=== PATIENT | female | born 1960 | race Caucasian/White ===

== ENCOUNTER 2023-02-13 17:24 | Emergency (ER) | payer BC ==
[2023-02-13] MEDS ORDERED: BENZONATATE 100 MG CAPSULE PO STA (17:40)
[2023-02-13 17:42] VITALS: BP 140/82
--- NOTE | 2023-02-13 17:43 | ED Physician Documentation ---
PD HPI URI - Stated complaint Stated Complaint: DRY COUGH - Chief complaint Chief Complaint: Resp - History obtained from History obtained from: Patient - Additional information Additional information: Patient is a 62-year-old female presenting for evaluation of nonproductive cough that is been going on for 4 days. Patient was seen at the walk-in clinic on Tuesday and felt that her symptoms are likely related to a viral infection and continue with supportive care. She was not given any prescriptions for her symptoms. She states that she has also had a sore throat for similar amount of days. She did not have a strep test done. She states that overnight she had difficulty sleeping due to the cough keeping her up. Denies known fevers. Denies congestion. Denies chest pain or feeling short of air. She has taken 2 COVID test at home including this morning which have both been negative. Denies known sick contacts. Review of Systems Constitutional: denies: Fever Cardiac: denies: Chest pain / pressure Respiratory: reports: Cough. denies: Dyspnea GI: denies: Abdominal Pain, Vomiting : denies: Dysuria Neurologic: denies: Headache PD PAST MEDICAL HISTORY - Present Medications Home Medications: Ambulatory Orders Medication Instructions Recorded Confirmed Albuterol Sulf [Ventolin Hfa 1 - 2 puffs INH Q4HR PRN #1 each 02/13/23 Inhaler] Benzonatate [Tessalon] 200 mg PO QID PRN #20 cap 02/13/23 estradioL [Estradiol] 10 mg [place] ONCE 02/13/23 02/13/23 - Allergies Allergies/Adverse Reactions: Allergies Allergy/AdvReac Type Severity Reaction Status Date / Time codeine Allergy Emesis Verified 02/13/23 17:29 Sulfa (Sulfonamide Allergy Emesis Verified 02/13/23 17:29 Antibiotics) PD ED PE NORMAL - General General: Alert and oriented X 3, No acute distress, Well developed/nourished - HEENT HEENT: Atraumatic, Moist mucous membranes, Pharynx benign (No oral swelling or exudate) - Neck Neck: Supple, no meningeal sign - Cardiac Cardiac: RRR, Strong equal pulses - Respiratory Respiratory: No respiratory distress, Clear bilaterally - Abdomen Abdomen: Soft, Non tender - Derm Derm: Warm and dry - Extremities Extremities: No edema - Neuro Neuro: Normal speech Results - Vitals Vitals: Vital Signs - 24 hr 02/13/23 17:29 Temperature 36.8 C Heart Rate 90 Respiratory 16 Rate Blood Pressure 140/82 H O2 Saturation 99 - Labs Labs: Laboratory Tests 02/13/23 17:48 Group A Strep Rapid Negative PD Medical Decision Making - ED course Complexity details: reviewed results, re-evaluated patient, d/w patient ED course: Patient is a 62-year-old female presenting for evaluation of cough and a sore throat for the past several days. Has had home COVID test which have been negative. Her vital signs here are stable. No signs of labored breathing. No chest pain or shortness of air. No wheezing on exam. Chest x-ray which I reviewed is negative for pneumonia or effusion. Strep test is negative. Patient was given a dose of Decadron as well as a dose of Tessalon. Discussed that her symptoms are likely viral in nature but we could offer some treatments that may help with the cough and sore throat. She is agreeable to the Decadron as well as Tessalon Perles as well as inhaler which may help when she has episodes of what sound like bronchospasms. Patient counseled on need for follow-up with PCP as well as concerning symptoms to return for. Departure - Departure Disposition: Home, Self Care Clinical Impression: Upper respiratory infection Condition: Stable Instructions: ED Viral Syndrome Prescriptions: Albuterol Sulf [Ventolin Hfa Inhaler] 1 - 2 puffs INH Q4HR PRN #1 each PRN Reason: Shortness Of Air/Wheezing Benzonatate [Tessalon] 200 mg PO QID PRN #20 cap PRN Reason: Cough Comments: Your strep test is negative. Your chest x-ray looks clear and I do not see signs of pneumonia. The official read is pending but I will notify you of any significant discrepancies. We have given you a dose of a steroid which may help with the inflammation in your throat and your lungs called Decadron. I have additionally sent prescriptions for Tessalon Perles which are a cough medication as well as an inhaler to [facility] in [place]. The inhaler may help when you are having coughing fits to break the bronchospasms. I would recommend close follow-up with your primary care provider. Your symptoms are likely related to a viral process and I would expect them to get better over the course of the next week. Please continue with hydration and rest. Return to the ER with any worsening symptoms. Forms: PCP List
[2023-02-13 18:05] LABS: RAPID STREP SCREEN Negative (Negative)
[2023-02-13] MEDS ORDERED: CHERRY SYRUP 10 ML UDC PO ONE (18:09)
[2023-02-13] MEDS ORDERED: DEXAMETHASONE 10 MG/ML VIAL PO STA (18:09)
--- NOTE | 2023-02-13 18:28 | XRAY Report ---
PROCEDURE: Chest 1 View X-Ray INDICATIONS: cough TECHNIQUE: One view of the chest was acquired. COMPARISON: None. FINDINGS: Surgical changes and devices: None. Lungs and pleura: No pleural effusions or pneumothorax. Lungs are clear. Mediastinum: Mediastinal contours appear normal. Heart size is normal. Bones and chest wall: No suspicious bony lesions. Overlying soft tissues appear unremarkable. IMPRESSION: No acute cardiopulmonary process. Reviewed by: Preston Rivers MD on 02/13/2023 5:27 PM [facility] Approved by: Preston Rivers MD on 02/13/2023 5:27 PM [facility] Station ID: [id number]
== END 2023-02-13 18:33 | disposition home or self-care (01) ==
LOC: ED 17:24
DX: J06.9 Acute upper respiratory infection, unspecified (principal)
CPT/HCPCS: 71045; 87070; 87430; 99283; 99284; A9270

== ENCOUNTER 2023-02-18 08:21 | Outpatient (CLI) | payer BC ==
[2023-02-18 12:45] LABS: BILIRUBIN,URINE NEGATIVE (NEGATIVE); GLUCOSE, URINE (UA) NEGATIVE (NEGATIVE); KETONES,URINE (UA) NEGATIVE (NEGATIVE); LEUKOCYTE ESTERASE, URINE NEGATIVE (NEGATIVE); NITRITE,URINE NEGATIVE (NEGATIVE); OCCULT BLOOD,URINE NEGATIVE (NEGATIVE); PH,URINE 6.5 PH (5.0-7.5); PROTEIN,URINE NEGATIVE (NEGATIVE); UROBILINOGEN,URINE 0.2 (NORMAL) E.U./dL (NORMAL)
[2023-02-18 12:46] LABS: BASOPHILS % (AUTO) 0.9 %; EOSINOPHILS % (AUTO) 0.7 %; HCT - HEMATOCRIT 40.6 % (37.0-47.0); HGB - HEMOGLOBIN 13.1 g/dL (12.0-16.0); LYMPHOCYTES # (AUTO) 2.4 10^3/uL (1.5-3.5); LYMPHOCYTES % (AUTO) 53.1 %; MEAN CORPUSCULAR HEMOGLOBIN 29.5 pg (27.0-31.0); MEAN CORPUSCULAR HGB CONC 32.3 g/dL (32.0-36.0); MEAN CORPUSCULAR VOLUME 91.4 fL (81.0-99.0); MEAN PLATELET VOLUME 10.8 fL (7.9-10.8); MONOCYTES # (AUTO) 0.3 10^3/uL (0.0-1.0); MONOCYTES % (AUTO) 5.9 %; NEUTROPHILS # (AUTO) 1.8 10^3/uL (1.5-6.6); NEUTROPHILS % (AUTO) 39.4 %; PLT - PLATELET COUNT 303 10^3/uL (130-450); RED BLOOD COUNT 4.44 10^6/uL (4.20-5.40); RED CELL DISTRIBUTION WIDTH 11.7 % (12.0-15.0); WHITE BLOOD COUNT 4.5 x10^3/uL (4.8-10.8)
[2023-02-18 12:54] LABS: BACTERIA,URINE Rare /HPF (None Seen); CLARITY,URINE CLEAR (CLEAR); RBC,URINE None Seen /HPF (0-5); SQUAMOUS EPITHELIAL CELL,UR RARE Squamous (<= Few); WBC,URINE 0-3 /HPF (0-5)
[2023-02-18 13:22] LABS: ALBUMIN 4.3 g/dL (3.2-5.5); ALBUMIN/GLOBULIN RATIO 1.6 (1.0-2.2); BILIRUBIN,TOTAL 0.6 mg/dL (0.2-1.0); CALCIUM 9.4 mg/dL (8.5-10.3); CREATININE 0.7 mg/dL (0.6-1.3); POTASSIUM 4.1 mmol/L (3.5-4.5)
[2023-02-18 13:31] LABS: ESTIMATED AVERAGE GLUCOSE 111 mg/dL (70-100); HEMOGLOBIN A1c% 5.5 % (4.27-6.07)
[2023-02-18 13:34] LABS: THYROID STIMULATING HORMONE 1.84 uIU/mL (0.34-5.60)
[2023-02-19 04:09] LABS: VITAMIN D 25-HYDROXY 47.9 ng/mL (30.0-100.0)
[2023-02-21 17:08] LABS: ANTINUCLEAR ANTIBODIES IFA Negative (.)
== END 2023-02-18 08:22 | disposition home or self-care (01) ==
LOC: LAB.N 08:21
DX: R68.2 Dry mouth, unspecified (principal); H04.129 Dry eye syndrome of unspecified lacrimal gland
CPT/HCPCS: 36415; 80053; 81001; 82306; 82607; 83036; 84443; 85025; 85651; 86038

== ENCOUNTER 2023-03-14 10:20 | Outpatient (CLI) | payer BC ==
[2023-03-14 18:43] LABS: BASOPHILS # (AUTO) 0.1 10^3/uL (0.0-0.1); BASOPHILS % (AUTO) 1.2 %; EOSINOPHILS % (AUTO) 0.7 %; HCT - HEMATOCRIT 41.2 % (37.0-47.0); HGB - HEMOGLOBIN 13.2 g/dL (12.0-16.0); LYMPHOCYTES # (AUTO) 1.4 10^3/uL (1.5-3.5); LYMPHOCYTES % (AUTO) 34.3 %; MEAN CORPUSCULAR HEMOGLOBIN 29.7 pg (27.0-31.0); MEAN CORPUSCULAR VOLUME 92.6 fL (81.0-99.0); MEAN PLATELET VOLUME 10.9 fL (7.9-10.8); MONOCYTES # (AUTO) 0.3 10^3/uL (0.0-1.0); NEUTROPHILS # (AUTO) 2.3 10^3/uL (1.5-6.6); NEUTROPHILS % (AUTO) 55.6 %; PLT - PLATELET COUNT 285 10^3/uL (130-450); RED BLOOD COUNT 4.45 10^6/uL (4.20-5.40); RED CELL DISTRIBUTION WIDTH 12.1 % (12.0-15.0); WHITE BLOOD COUNT 4.1 x10^3/uL (4.8-10.8)
[2023-03-14 18:50] LABS: CRP HIGH SENSITIVITY 0.21 mg/L
[2023-03-16 06:10] LABS: HCV AB Non Reactive (Non Reactive); HIV SCREEN 4TH GENERATION Non Reactive (Non Reactive)
== END 2023-03-14 10:21 | disposition home or self-care (01) ==
LOC: LAB.N 10:20
PROVIDERS: ATTEND Physician Assistant
DX: R63.4 Abnormal weight loss (principal)
CPT/HCPCS: 36415; 83690; 85025; 85651; 86141; 86803; 87389

== ENCOUNTER 2023-03-15 08:00 | Outpatient (CLI) | payer BC ==
[2023-03-15 14:14] LABS: FECAL OCCULT BLOOD (FIT) NEGATIVE (NEGATIVE)
== END 2023-03-15 23:59 | disposition home or self-care (01) ==
LOC: LAB.R 08:00
PROVIDERS: ATTEND Physician Assistant
DX: R63.4 Abnormal weight loss (principal)
CPT/HCPCS: 82274

== ENCOUNTER 2023-03-22 12:18 | Outpatient (CLI) | payer BC ==
[2023-03-22 17:58] LABS: BASOPHILS # (AUTO) 0.1 10^3/uL (0.0-0.1); BASOPHILS % (AUTO) 0.9 %; EOSINOPHILS % (AUTO) 0.4 %; HCT - HEMATOCRIT 39.8 % (37.0-47.0); LYMPHOCYTES % (AUTO) 35.9 %; MEAN CORPUSCULAR HEMOGLOBIN 29.9 pg (27.0-31.0); MEAN CORPUSCULAR HGB CONC 32.7 g/dL (32.0-36.0); MEAN CORPUSCULAR VOLUME 91.5 fL (81.0-99.0); MEAN PLATELET VOLUME 10.9 fL (7.9-10.8); MONOCYTES # (AUTO) 0.3 10^3/uL (0.0-1.0); MONOCYTES % (AUTO) 6.2 %; NEUTROPHILS # (AUTO) 3.1 10^3/uL (1.5-6.6); NEUTROPHILS % (AUTO) 56.4 %; PLT - PLATELET COUNT 307 10^3/uL (130-450); RED BLOOD COUNT 4.35 10^6/uL (4.20-5.40); RETICULOCYTE COUNT % (AUTO) 1.38 % (0.5-2.3); WHITE BLOOD COUNT 5.5 x10^3/uL (4.8-10.8)
[2023-03-28 17:34] LABS: PATHOLOGIST SLIDE COMMENTS SEE SEPARATE REPORT
== END 2023-03-22 12:19 | disposition home or self-care (01) ==
LOC: LAB.N 12:18
PROVIDERS: ATTEND Physician Assistant
DX: D72.819 Decreased white blood cell count, unspecified (principal)
CPT/HCPCS: 36415; 85025; 85045

== ENCOUNTER 2023-03-28 07:30 | Outpatient (CLI) | payer BC ==
--- NOTE | 2023-03-28 17:10 | Ultrasound Report ---
PROCEDURE: Abdomen Complete INDICATIONS: LEUKOPENIA, WEIGHT LOSS, DIGESTIVE PROBLEMS TECHNIQUE: Real-time scanning was performed of the abdominal and retroperitoneal organs, with image documentatio n. COMPARISON: None. FINDINGS: Liver: Liver is normal in size and homogeneous in echotexture. Gallbladder: Wall thickness measures 2 mm. Biliary ducts: Intrahepatic bile ducts are non-dilated. Extrahepatic bile duct caliber measures 2 m m. Normal is 6-7 mm or less in diameter, or 10 mm or less post-cholecystectomy. Pancreas: Visualized portions of the pancreas are sonographically normal. Spleen: Spleen is normal in size and homogeneous in echotexture. Kidneys: Kidneys are normal in size and echotexture. Right kidney measures 10.0 cm long; left kidne y measures 10.1 cm long. No hydronephrosis or nephrolithiasis. No solid masses. No complex renal cy stic lesions which require follow-up. Aorta: Visualized aorta is normal in caliber at less than 3 cm. Iliacs: Proximal common iliac arteries are normal in caliber at less than 2.5 cm. IVC: Intrahepatic inferior vena cava is patent. Miscellaneous: No free abdominal fluid. IMPRESSION: Unremarkable exam. Reviewed by: Vicky Cortez MD on 03/28/2023 5:09 PM PDT Approved by: Vicky Cortez MD on 03/28/2023 5:09 PM PDT Station ID: [id number]
== END 2023-03-28 07:31 | disposition home or self-care (01) ==
LOC: DI 07:30
PROVIDERS: ATTEND Physician Assistant
DX: D72.819 Decreased white blood cell count, unspecified (principal); R63.4 Abnormal weight loss; K92.9 Disease of digestive system, unspecified

== ENCOUNTER 2023-07-02 13:26 | Emergency (ER) | payer BC ==
[2023-07-02 13:47] LABS: BASOPHILS % (AUTO) 0.6 %; EOSINOPHILS % (AUTO) 0.4 %; HCT - HEMATOCRIT 42.2 % (37.0-47.0); HGB - HEMOGLOBIN 13.9 g/dL (12.0-16.0); LYMPHOCYTES # (AUTO) 2.3 10^3/uL (1.5-3.5); LYMPHOCYTES % (AUTO) 42.7 %; MEAN CORPUSCULAR HEMOGLOBIN 29.4 pg (27.0-31.0); MEAN CORPUSCULAR HGB CONC 32.9 g/dL (32.0-36.0); MEAN CORPUSCULAR VOLUME 89.2 fL (81.0-99.0); MEAN PLATELET VOLUME 9.8 fL (7.9-10.8); MONOCYTES # (AUTO) 0.4 10^3/uL (0.0-1.0); MONOCYTES % (AUTO) 7.7 %; NEUTROPHILS # (AUTO) 2.6 10^3/uL (1.5-6.6); NEUTROPHILS % (AUTO) 48.6 %; PLT - PLATELET COUNT 311 10^3/uL (130-450); RED BLOOD COUNT 4.73 10^6/uL (4.20-5.40); RED CELL DISTRIBUTION WIDTH 11.9 % (12.0-15.0); WHITE BLOOD COUNT 5.3 x10^3/uL (4.8-10.8)
[2023-07-02 14:04] LABS: ALBUMIN 4.5 g/dL (3.2-5.5); ALBUMIN/GLOBULIN RATIO 1.8 (1.0-2.2); BILIRUBIN,TOTAL 0.6 mg/dL (0.2-1.0); CALCIUM 9.9 mg/dL (8.5-10.3); CREATININE 0.6 mg/dL (0.6-1.3); POTASSIUM 4.1 mmol/L (3.5-4.5)
[2023-07-02] MEDS ORDERED: KETOROLAC 15 MG/ML VIAL IVP STA (14:09)
--- NOTE | 2023-07-02 14:10 | ED Physician Documentation ---
PD HPI ABD PAIN - Stated complaint Stated Complaint: ABD PX - Chief complaint Chief Complaint: Abd Pain - History obtained from History obtained from: Patient - Additional information Additional information: 62-year-old woman with relatively recent diagnosis of Sjogren's disease. Otherwise very healthy with no history of abdominal surgeries. She developed sudden onset diffuse epigastric pain radiating down this morning around 9 AM. There is no associated nausea or changes in bowel movements. No urinary complaints with this. This is not something she is ever had before. No history of colonoscopies but has had negative Cologuard's. Had an abdominal ultrasound approximately 2 months ago that was normal. PD PAST MEDICAL HISTORY - Past Medical History Past Medical History: Yes Other Past Medical History: sjogren's disease - Past Surgical History Past Surgical History: No - Present Medications Home Medications: Ambulatory Orders Medication Instructions Recorded Confirmed Albuterol Sulf [Ventolin Hfa 1 - 2 puffs INH Q4HR PRN #1 each 02/13/23 Inhaler] Benzonatate [Tessalon] 200 mg PO QID PRN #20 cap 02/13/23 estradioL [Estradiol] 10 mg IL ONCE 02/13/23 02/13/23 - Allergies Allergies/Adverse Reactions: Allergies Allergy/AdvReac Type Severity Reaction Status Date / Time codeine Allergy Emesis Verified 07/02/23 13:36 Penicillins Allergy Unknown Verified 07/02/23 13:36 Sulfa (Sulfonamide Allergy Emesis Verified 07/02/23 13:36 Antibiotics) - Social History Does the pt smoke?: No Smoking Status: Never smoker Does the pt drink ETOH?: No Does the pt have substance abuse?: No - Immunizations Immunizations are current?: Yes - POLST Patient has POLST: No PD ED PE NORMAL - Vitals Vital signs reviewed: Yes - General General: Alert and oriented X 3, No acute distress - Cardiac Cardiac: RRR, No murmur - Respiratory Respiratory: No respiratory distress, Clear bilaterally - Abdomen Abdomen: Normal bowel sounds, Soft, Other (Left lower quadrant tenderness without surgical signs) - Neuro Neuro: Alert and oriented X 3, Normal speech Results - Vitals Vitals: Vital Signs - 24 hr 07/02/23 07/02/23 07/02/23 13:33 13:36 15:31 Temperature 36.1 C L 36.5 C Heart Rate 67 67 55 L Respiratory 16 16 18 Rate Blood Pressure 145/63 H 145/63 H 132/67 H O2 Saturation 100 100 99 Oxygen O2 Source Room air - Labs Labs: Laboratory Tests 07/02/23 07/02/23 07/02/23 13:43 13:43 14:45 WBC 5.3 RBC 4.73 Hgb 13.9 Hct 42.2 MCV 89.2 MCH 29.4 MCHC 32.9 RDW 11.9 L Plt Count 311 MPV 9.8 Neut # (Auto) 2.6 Lymph # (Auto) 2.3 [place] # (Auto) 0.4 Eos # (Auto) 0.0 Baso # (Auto) 0.0 Absolute Nucleated RBC 0.00 Nucleated RBC % 0.0 Sodium 140 Potassium 4.1 Chloride 105 Carbon Dioxide 30 Anion Gap 5.0 L BUN 11 Creatinine 0.6 Estimated GFR (MDRD) 101 Glucose 93 Calcium 9.9 Total Bilirubin 0.6 AST 18 ALT 18 Alkaline Phosphatase 74 Total Protein 7.0 Albumin 4.5 Globulin 2.5 Albumin/Globulin Ratio 1.8 Lipase 24 Urine Color YELLOW Urine Clarity CLEAR Urine pH 7.0 Ur Specific [place] 1.010 Urine Protein NEGATIVE Urine Glucose (UA) NEGATIVE Urine Ketones NEGATIVE Urine Occult Blood NEGATIVE Urine Nitrite NEGATIVE Urine Bilirubin NEGATIVE Urine Urobilinogen 0.2 (NORMAL) Ur Leukocyte Esterase NEGATIVE Ur Microscopic Review NOT INDICATED Urine Culture Comments NOT INDICATED - Rads (name of study) abd /pel ct Relevant Findings:: Final report received, EMP independent interpretation of test PD Medical Decision Making - ED course ED course: She presents with sudden onset central abdominal pain with some left lower quadrant tenderness. Workup in the emergency department demonstrated normal CBC, CMP, urinalysis and abdominal CT. On my eye she did have somewhat of a generous stool load on the CT and wonder if that might be causative. On reevaluation at 3:30 PM prior to discharge she was pain-free and nontender. Departure - Departure Disposition: 01 Home, Self Care Clinical Impression: Abdominal pain Qualifiers: Abdominal location: generalized Qualified Code(s): R10.84 - Generalized abdominal pain Condition: Good Record reviewed to determine appropriate education?: Yes Instructions: ED Abdominal Pain Female Non-Specific Abdominal Pain Comments: As discussed, diagnostic testing in the emergency department was completely normal with normal CBC, CMP, and abdominal CT, at least officially. I did believe there was somewhat of a generalized stool load on the CT but the radiologist did not comment otherwise. Call your doctor to arrange a follow-up appointment, make the next available appointment. In the interim, return anytime if worse or if new symptoms develop. Forms: PCP List
[2023-07-02 14:53] LABS: BILIRUBIN,URINE NEGATIVE (NEGATIVE); GLUCOSE, URINE (UA) NEGATIVE (NEGATIVE); KETONES,URINE (UA) NEGATIVE (NEGATIVE); LEUKOCYTE ESTERASE, URINE NEGATIVE (NEGATIVE); NITRITE,URINE NEGATIVE (NEGATIVE); OCCULT BLOOD,URINE NEGATIVE (NEGATIVE); PROTEIN,URINE NEGATIVE (NEGATIVE); UROBILINOGEN,URINE 0.2 (NORMAL) E.U./dL (NORMAL)
[2023-07-02 14:56] LABS: CLARITY,URINE CLEAR (CLEAR)
[2023-07-02] MEDS ORDERED: iohexoL-300 100 ML VIAL IVP ONE (15:09)
--- NOTE | 2023-07-02 15:19 | CT Report ---
PROCEDURE: ABDOMEN/PELVIS W INDICATIONS: abd pain, iv only CONTRAST: Omni 300 100ml TECHNIQUE: After the administration of intravenous contrast, 5 mm thick sections acquired from the diaphragms to the symphysis. 5 mm thick coronal and sagittal reformats were acquired. For radiation dose reducti on, the following was used: automated exposure control, adjustment of mA and/or kV according to rosalva ent size. COMPARISON: Abdominal ultrasound 03/28/2023. FINDINGS: Image quality: Excellent. Lung bases and heart: Unremarkable. Liver: No solid mass. Gallbladder and biliary tree: No radiopaque stones or wall thickening. No biliary dilation. Spleen: No splenomegaly. Pancreas: No pancreatic ductal dilation. Adrenals: No adrenal nodule. Kidneys and ureters: No hydronephrosis. No renal cystic lesion which requires follow up. No solid mas s. Bowel and peritoneum: No bowel distension. No pathologic free fluid. Appendix is nondilated. There is seen within the appendiceal lumen. Lymph nodes: No central or retroperitoneal adenopathy. Vessels: No infrarenal aortic aneurysm. PELVIS Reproductive organs: The procedures. Possible small calcified fibroid. Bladder: No abnormal wall thickening, accounting for underdistention. Pelvic lymph nodes: No pelvic adenopathy by size criteria. Bones: No aggressive osseous abnormality. Other: No significant ventral or inguinal hernia. IMPRESSION: No acute abnormality identified. No free fluid. Normal appendix. Reviewed by: Meño Mitchell MD on 07/02/2023 3:18 PM [facility] Approved by: Meño Mitchell MD on 07/02/2023 3:18 PM PST Station ID: [id number]
[2023-07-02 15:33] VITALS: O2SAT 99
[2023-07-02 15:51] VITALS: BP 126/83
== END 2023-07-02 15:50 | disposition home or self-care (01) ==
LOC: ED 13:26
DX: R10.84 Generalized abdominal pain (principal)
CPT/HCPCS: 36415; 74177; 80053; 81003; 83690; 85025; 99283; 99284; Q9967; 81001; 87086